=== PATIENT | male | born 1950 | race Caucasian/White ===

== ENCOUNTER 2021-06-02 14:45 | Inpatient (IN) | payer MEDICARE ==
[~2021-06-02] VITALS: Ht 185.4 cm; Wt 83.2 kg
[~2021-06-02 14:45] MED LIST: ACET325 PO; ALBU90OI6 INH; AMLO5 PO; ASPI81CH PO; DOCU100 PO; ELIQUIS2.5 MG PO; FOLI1 PO; METO50 PO; NICO21TP TOP; PRED5 PO; THIA100 PO
[2021-06-02 17:21] LABS: BASOPHILS ABSOLUTE AUTO 0.06 K/mm3 (0.00-0.23); BASOPHILS PERCENT AUTO 1 % (0-2); EOSINOPHILS ABSOLUTE AUTO 0.22 K/mm3 (0.00-0.68); EOSINOPHILS PERCENT AUTO 2 % (0-6); Hematocrit 47.1 % (37.0-53.0); IMMATURE GRAN ABSOLUTE AUTO 0.07 K/mm3 (0.00-0.10); IMMATURE GRAN PERCENT AUTO 1 % (0-1); LYMPHOCYTES ABSOLUTE AUTO 1.53 K/mm3 (0.84-5.20); LYMPHOCYTES PERCENT AUTO 14 % (21-46); MONOCYTES ABSOLUTE AUTO 1.01 K/mm3 (0.16-1.47); MONOCYTES PERCENT AUTO 9 % (4-13); Mean Corpuscular HGB 32.9 pg (26.0-34.0); Mean Corpuscular HGB Conc 36.1 g/dL (31.5-36.5); Mean Corpuscular Volume 91 fL (80-100); Mean Platelet Volume 10.6 fL (9.1-12.4); NEUTROPHILS ABSOLUTE AUTO 7.83 K/mm3 (1.96-9.15); NEUTROPHILS PERCENT AUTO 73 % (41-73); Platelet Count 337 K/mm3 (150-400); RDW Coefficient Variation 12.3 % (11.7-14.2); RDW Standard Deviation 41.3 fL (35.1-46.3); Red Blood Cell Count 5.17 M/mm3 (4.30-5.90); White Blood Cell Count 10.72 K/mm3 (4.00-11.30)
[2021-06-02 17:43] LABS: Magnesium, Blood 2.5 mg/dL (1.6-2.4); Troponin I <0.015 ng/mL (0.000-0.040)
[2021-06-02 17:46] LABS: Alanine Aminotransfer (ALT/SGP 29 U/L (12-78); Albumin, Blood 3.6 g/dL (3.4-5.0); Albumin/Globulin Ratio 0.9 (0.8-1.8); Alk Phos 78 U/L (50-136); Anion Gap 22 mmol/L (6-16); Aspartate Aminotrans (AST/SGOT 18 U/L (12-37); Bilirubin, Total 0.7 mg/dL (0.1-1.0); Blood Urea Nitrogen 139 mg/dL (8-24); Bun/Creatinine Ratio 9.2 (12.0-20.0); CO2, Blood 13 mmol/L (21-32); Calcium, Blood 8.9 mg/dL (8.5-10.1); Chloride, Blood 96 mmol/L (98-108); Globulin, Blood 4.1 g/dL (2.2-4.0); Glomerular Filtration Rate 3 (60-); Glucose, Blood 109 mg/dL (70-99); Potassium, Blood 4.6 mmol/L (3.5-5.5); Sodium, Blood 131 mmol/L (136-145); Total Protein, Blood 7.7 g/dL (6.4-8.2)
[2021-06-02 18:44] LABS: Salicylate 2.8 mg/dL (2.8-20.0)
[2021-06-02 18:45] LABS: Base Excess Venous -16.9 mmol/L; Bicarbonate Venous 12.5 mmol/L (24.0-30.0); PCO2 Venous 36.2 mmHg (38-42)
[2021-06-02 18:46] LABS: pH Blood Venous 7.14 (7.34-7.37)
[2021-06-02 18:50] LABS: Beta-hydroxybutyrate 2.8 mg/dL (0.2-2.8)
[2021-06-02 22:47] LABS: Source, Urine Clean Catch
[2021-06-02 23:15] LABS: Blood, Urine 4+ (Neg); Glucose Qualitative, Urine Neg (Neg); Ketones, Urine Neg (Neg); Leukocyte Esterase, Urine Neg (Neg); Nitrite, Urine Neg (Neg); Protein, Urine 2+ (Neg); Specific Gravity, Urine 1.025 (1.003-1.022); Urobilinogen, Urine NORM (Normal)
[2021-06-02 23:52] LABS: Appearance, Urine Hazy (Clear); Bilirubin, Urine 1+ (Neg); Color, Urine Yellow (P-Yellow)
[2021-06-02 23:55] LABS: Bacteria Mod /hpf; Squamous Epithelial Cells Few /hpf (Few)
--- NOTE | 2021-06-03 01:00 | NUR ---
UPDATE/PT TRANSFER PHYSICIAN NOTIFIED OF PT'S LOW BP AND MAP BELOW 65. ORDERS FOR 500 ML BOLUS. BOLUS GIVEN AND BICARB GTT STARTED. WINN ORDER AND INSERTED D/T PT'S INABILITY TO VOID W/URINE RETENTION. BLADDER SCAN OF OVER 350. ICU BOTTOM TURNER IN ROOM INSERTING POWER GLIDE. PT CONT TO HAVE LOW BP WITH MAP BELOW 65. PHYSICIAN NOTIFIED. ORDERS FOR LEVO AND ICU TX. PRIOR TO TRANSFER PT REPORTS TO HAVE HAD CP OVER THIS LAST WEEK WHEN EXERTING HIMSELF WHILE WALKING. PT SAID HE HAS NOT HAD ANY CP TODAY WHILE RESTING. ICU BOTTOM TURNER AND PRIMARY RN NOTIFIED. PT STATED HE DID "NOT WANT FAMILY NOTIFIED OF ICU TRANFER TONIGHT, WANTS FAMILY NOTIFIED TOMORROW WHEN AWAKE." PRIMARY RN INFORMED. PT TRANSFERRED TO ICU 12 BY THIS RN AND DYLAN ROUSE BY BED WITH BELONGINGS.
--- NOTE | 2021-06-03 01:39 | NUR ---
PATIENT TO ICU 12 FROM PCU 7 AT 0050. PATIENT IS ALERT AND ORIENTED X4, DOES ADMIT TO SOME CONFUSION AND FORGETFULLNESS ABOUT EVENTS EARLIER TODAY. COOPERATIVE WITH CARE AND FOLLOWING COMMANDS. 02 SATS 98% ON RA. LUNGS SOUNDS CLEAR TO COARSE, PATIENT HAS A DRY COUGH. HR A.FIB 70s-80s. BP HYPOTENSIVE ON ARRIVAL, LEVOPHED STARTED MAP NOW GREATER THAN 65. PULSES FAINT IN LOWER EXTREMETIES, CAP REFILL >3 SECONDS, SOME REDNESS IN BILATERAL FEET. WINN DRAINING YELLOW/SEDIMENT URINE TO GRAVITY. BOWEL TONES HYPERACTIVE, PT STATES DIARRHEA FOR PAST COUPLE WEEKS BUT NO BM FOR APPROX 3 DAYS NOW. ABLE TO MOVE SELF IN BED. CALL LIGHT IN REACH. SEE ASSESSMENT FOR MORE DETAIL.
[2021-06-03 03:51] LABS: BASOPHILS ABSOLUTE AUTO 0.06 K/mm3 (0.00-0.23); BASOPHILS PERCENT AUTO 1 % (0-2); EOSINOPHILS ABSOLUTE AUTO 0.32 K/mm3 (0.00-0.68); EOSINOPHILS PERCENT AUTO 3 % (0-6); Hematocrit 39.2 % (37.0-53.0); Hemoglobin 14.1 g/dL (13.5-17.5); IMMATURE GRAN ABSOLUTE AUTO 0.04 K/mm3 (0.00-0.10); IMMATURE GRAN PERCENT AUTO 0 % (0-1); LYMPHOCYTES ABSOLUTE AUTO 1.54 K/mm3 (0.84-5.20); LYMPHOCYTES PERCENT AUTO 16 % (21-46); MONOCYTES ABSOLUTE AUTO 0.96 K/mm3 (0.16-1.47); MONOCYTES PERCENT AUTO 10 % (4-13); Mean Corpuscular HGB 32.9 pg (26.0-34.0); Mean Corpuscular Volume 92 fL (80-100); Mean Platelet Volume 10.3 fL (9.1-12.4); NEUTROPHILS ABSOLUTE AUTO 6.66 K/mm3 (1.96-9.15); NEUTROPHILS PERCENT AUTO 70 % (41-73); Platelet Count 289 K/mm3 (150-400); RDW Coefficient Variation 12.4 % (11.7-14.2); RDW Standard Deviation 41.8 fL (35.1-46.3); Red Blood Cell Count 4.28 M/mm3 (4.30-5.90); White Blood Cell Count 9.58 K/mm3 (4.00-11.30)
[2021-06-03 05:08] LABS: Albumin, Blood 2.9 g/dL (3.4-5.0); Albumin/Globulin Ratio 0.9 (0.8-1.8); Bilirubin, Total 0.7 mg/dL (0.1-1.0); Bun/Creatinine Ratio 12.5 (12.0-20.0); Calcium, Blood 7.6 mg/dL (8.5-10.1); Creatinine, Blood 9.69 mg/dL (0.60-1.20); Globulin, Blood 3.3 g/dL (2.2-4.0); Potassium, Blood 3.6 mmol/L (3.5-5.5); Total Protein, Blood 6.2 g/dL (6.4-8.2)
--- NOTE | 2021-06-03 05:54 | NUR ---
SHIFT SUMMARY PATIENT REMAINS ALERT AND ORIENTED, COOPERATIVE WITH CARE. 02 SATS 100% ON RA. LUNGS CLEAR TO COARSE, COUGH IS NON PRODUCTIVE. HR A. FIB 80s. BP WITH MAP >65 ON LEVOPHED. WINN DRAINING TO GRAVITY, YELLOW WITH SEDIMENT. PATIENT ABLE TO REPOSITION SELF IN BED. NO BM SINCE ARRIVING TO ICU. CALL LIGHT IN REACH.
--- NOTE | 2021-06-03 08:48 | NUR ---
CARE OF PT ASSUMED AT 0700. PT AWAKE IN BED. RENAL ULTRASOUND COMPLETE. DR BLUE IN TO SEE PT, UPDATE GIVEN. BICARB GTT AT 100CC/HR. LEVOPHED AT 7MCG TO KEEP MAP >65. PT AFEBRILE, SATS 99% ON RA, PT DENIES SOB. LUNGS CLEAR, DIMINISHED T/O. PT IS A CURRENT EVERYDAY SMOKER. PT DENIES C/O PAIN AND STATES HE FEELS MUCH BETTER TODAY. LEVOPHED IS INFUSING THROUGH POWERGLIDE. PICC TO BE PLACED.
--- NOTE | 2021-06-03 18:42 | NUR ---
LEVOPHED INCREASED TO 10MCG AT 1030 THIS AM AND HAS REMAINED THERE ENTIRE SHIFT. MAPS >65. BICARB GTT COMPLETE, CHANGED TO LR AT 125CC/HR. BMP SENT. PT HAS DENIED COMPLAINTS THIS SHIFT, RESTED IN BED WATCHING TV. SATS 99-100% ON RA.
[2021-06-03 18:44] LABS: Bun/Creatinine Ratio 24.7 (12.0-20.0); Calcium, Blood 7.6 mg/dL (8.5-10.1); Creatinine, Blood 3.81 mg/dL (0.60-1.20); Potassium, Blood 3.4 mmol/L (3.5-5.5)
--- NOTE | 2021-06-03 20:28 | NUR ---
ASSUMED CARE AT 1900 PATIENT IS ALERT AND ORIENTED, COOPERATIVE WITH CARE. 02 SATS 99% ON RA WITH A DRY COUGH. LUNGS SOUND CLEAR TO DIMINISHED IN THE BASES. HR A.FIB @80s, LEVOPHED INF 7 MCG/MIN TO KEEP MAP >65, WILL TITRATE NEEDED. WINN DRAINING TO GRAVITY, CLEAR YELLOW. CALLED HOSPITALIST FOR POTASSIUM REPLACEMENT, AND SLIDING SCALE FOR HIGH BLOOD GLUCOSE, SEE EMAR. PATIENT ABLE TO REPOSITION SELF IN BED. CALL LIGHT IN REACH.
[2021-06-04 03:51] LABS: BASOPHILS ABSOLUTE AUTO 0.01 K/mm3 (0.00-0.23); BASOPHILS PERCENT AUTO 0 % (0-2); EOSINOPHILS PERCENT AUTO 0 % (0-6); Hematocrit 34.7 % (37.0-53.0); Hemoglobin 12.8 g/dL (13.5-17.5); IMMATURE GRAN ABSOLUTE AUTO 0.04 K/mm3 (0.00-0.10); IMMATURE GRAN PERCENT AUTO 1 % (0-1); LYMPHOCYTES PERCENT AUTO 8 % (21-46); MONOCYTES ABSOLUTE AUTO 0.65 K/mm3 (0.16-1.47); MONOCYTES PERCENT AUTO 8 % (4-13); Mean Corpuscular HGB 33.2 pg (26.0-34.0); Mean Corpuscular HGB Conc 36.9 g/dL (31.5-36.5); Mean Corpuscular Volume 90 fL (80-100); Mean Platelet Volume 10.3 fL (9.1-12.4); NEUTROPHILS PERCENT AUTO 84 % (41-73); Platelet Count 237 K/mm3 (150-400); RDW Coefficient Variation 12.2 % (11.7-14.2); RDW Standard Deviation 39.7 fL (35.1-46.3); Red Blood Cell Count 3.85 M/mm3 (4.30-5.90)
[2021-06-04 04:12] LABS: Albumin, Blood 2.6 g/dL (3.4-5.0); Anion Gap 8 mmol/L (6-16); Blood Urea Nitrogen 76 mg/dL (8-24); Bun/Creatinine Ratio 35.8 (12.0-20.0); CO2, Blood 20 mmol/L (21-32); Calcium, Blood 7.8 mg/dL (8.5-10.1); Chloride, Blood 112 mmol/L (98-108); Creatinine, Blood 2.12 mg/dL (0.60-1.20); Glomerular Filtration Rate 31 (60-); Glucose, Blood 121 mg/dL (70-99); Magnesium, Blood 1.8 mg/dL (1.6-2.4); Phosphorus, Blood 2.5 mg/dL (2.5-4.9); Potassium, Blood 3.6 mmol/L (3.5-5.5); Sodium, Blood 140 mmol/L (136-145)
--- NOTE | 2021-06-04 05:15 | NUR ---
SHIFT SUMMARY PATIENT REMAINS ALERT AND ORIENTED. 02 SATS 98% ON RA. PATIENT STATES HIS COUGH IS PRODUCTIVE, SCANT AMOUNT OF THIN SPUTUM. HR A.FIB @70s-80s. LEVOPHED TITRATED OFF AT APPROX 0100, MAP MAINTAINED >65. WINN DRAINING CLEAR YELLOW URINE. PATIENT REPOSITIONS HIMSELF IN BED. CALL LIGHT IN REACH.
--- NOTE | 2021-06-04 09:52 | NUR ---
CARE OF PT ASSUMED AT 0700. PT AWAKE AND ALERT, DENIES ALL COMPLAINTS BUT STATES HE DID NOT SLEEP WELL LAST NIGHT. LEVOPHED HAS BEEN OFF SINCE LAST NIGHT, MAPS >65. DR BLUE IN TO SEE PT THIS AM, UPDATE GIVEN. PT NOW MED FLOOR W/O TELE.
--- NOTE | 2021-06-04 18:02 | NUR ---
PT AWAKE AND RESTED IN BED FOR ENTIRE SHIFT. PT DECLINED CHAIR. VSS T/O SHIFT. PT W/O COMPLAINTS FOR ENTIRE SHIFT. GOOD APPETITE/PO INTAKE. NO BM SINCE ADMIT; CDIFF CX'D. PT TO BE POSSIBLY DC'D HOME IN AM PER DR BLUE.
--- NOTE | 2021-06-04 19:41 | NUR ---
ASSUMED CARE @1850 PATIENT ALERT AND ORIENTED X4. 02 SATS 98% ON RA. LUNGS SOUND CLEAR TO DIMINISHED, COUGH WITH SCANT AMOUNT OF THIN SPUTUM AT TIMES. HR IN THE 80s. BP STABLE. PATIENT DENIES CP/PRESSURE/SOB. WINN DRAINING CLEAR YELLOW URINE. PATIENT REPOSITIONS SELF IN BED. CALL LIGHT IN REACH. SEE SHIFT ASSESSMENT FOR MORE DETAIL.
[2021-06-05 05:02] LABS: Anion Gap 6 mmol/L (6-16); Blood Urea Nitrogen 51 mg/dL (8-24); CO2, Blood 23 mmol/L (21-32); Calcium, Blood 8.2 mg/dL (8.5-10.1); Chloride, Blood 114 mmol/L (98-108); Creatinine, Blood 1.16 mg/dL (0.60-1.20); Glomerular Filtration Rate >60 (60-); Glucose, Blood 115 mg/dL (70-99); Potassium, Blood 4.2 mmol/L (3.5-5.5); Sodium, Blood 143 mmol/L (136-145)
--- NOTE | 2021-06-05 05:19 | NUR ---
SHIFT SUMMARY PATIENT IS ALERT AND ORIENTED. 02 SATS >93% ON RA. LUNGS CLEAR TO DIMINISHED. HR 80s-90s. BP STABLE. REMOVED WINN CATHETER AND PATIENT ABLE TO VOID IN URINAL. NO BM THIS SHIFT. PATIENT IS INDEPENDENT WITH REPOSITIONING. CALL LIGHT IN REACH.
== END 2021-06-05 12:50 | disposition home or self-care (01) | DRG 177 ==
LOC: ER 14:45 → PCU 19:51 → ER 21:18 → PCU 21:50 → ICUW 06-03 00:52
PROVIDERS: Family Medicine; Internal Medicine; Physician Assistant; Student in an Organized Health Care Education/Training Program; ADMIT Internal Medicine
PROC: 8E0ZXY6 Isolation (ICD-10-PCS; principal; 2021-06-02)
PROC: 3E043XZ Introduction of Vasopressor into Central Vein, Percutaneous Approach (ICD-10-PCS; 2021-06-03)
PROC: 3E0333Z Introduction of Anti-inflammatory into Peripheral Vein, Percutaneous Approach (ICD-10-PCS; 2021-06-03)
PROC: 02HV33Z Insertion of Infusion Device into Superior Vena Cava, Percutaneous Approach (ICD-10-PCS; 2021-06-03)
DX: U07.1 COVID-19 (principal); R57.1 Hypovolemic shock; J96.01 Acute respiratory failure with hypoxia; N17.9 Acute kidney failure, unspecified; E87.2 Acidosis; E87.1 Hypo-osmolality and hyponatremia; A08.39 Other viral enteritis; I10 Essential (primary) hypertension; I48.91 Unspecified atrial fibrillation; J44.9 Chronic obstructive pulmonary disease, unspecified; F17.210 Nicotine dependence, cigarettes, uncomplicated; F10.20 Alcohol dependence, uncomplicated; Z87.01 Personal history of pneumonia (recurrent); Z86.711 Personal history of pulmonary embolism; Z86.718 Personal history of other venous thrombosis and embolism; Z86.73 Personal history of transient ischemic attack (TIA), and cerebral infarction without residual deficits; Z79.52 Long term (current) use of systemic steroids; Z79.82 Long term (current) use of aspirin; Z79.899 Other long term (current) drug therapy
CPT/HCPCS: 36415; 36569; 51798; 71045; 76770; 80048; 80053; 80069; 81001; 82010; 82803; 82947; 83605; 83735; 83880; 84484; 85025; 86850; 86900; 86901; 87040; 87086; 93005; 93010; 94760; 96365; 99285-25; A9270; C1751; G0480; J0696; J1100; J2543; J7030; J7040; J7050; J7060; J7120

== ENCOUNTER 2022-11-21 20:16 | Observation (INO) | payer MEDICARE ==
[~2022-11-21] VITALS: Ht 182.9 cm; Wt 83.4 kg
[2022-11-21 21:47] LABS: BASOPHILS ABSOLUTE AUTO 0.07 K/mm3 (0.00-0.23); BASOPHILS PERCENT AUTO 1 % (0-2); EOSINOPHILS ABSOLUTE AUTO 0.26 K/mm3 (0.00-0.68); EOSINOPHILS PERCENT AUTO 3 % (0-6); Hematocrit 47.8 % (37.0-53.0); Hemoglobin 17.1 g/dL (13.5-17.5); IMMATURE GRAN ABSOLUTE AUTO 0.03 K/mm3 (0.00-0.10); IMMATURE GRAN PERCENT AUTO 0 % (0-1); LYMPHOCYTES PERCENT AUTO 32 % (21-46); MONOCYTES ABSOLUTE AUTO 0.98 K/mm3 (0.16-1.47); MONOCYTES PERCENT AUTO 10 % (4-13); Mean Corpuscular HGB 33.5 pg (26.0-34.0); Mean Corpuscular HGB Conc 35.8 g/dL (31.5-36.5); Mean Corpuscular Volume 94 fL (80-100); Mean Platelet Volume 9.8 fL (9.1-12.4); NEUTROPHILS ABSOLUTE AUTO 5.56 K/mm3 (1.96-9.15); NEUTROPHILS PERCENT AUTO 55 % (41-73); Platelet Count 399 K/mm3 (150-400); RDW Coefficient Variation 13.1 % (11.7-14.2); RDW Standard Deviation 44.6 fL (35.1-46.3)
[2022-11-21 22:21] LABS: Albumin, Blood 3.6 g/dL (3.4-5.0); Albumin/Globulin Ratio 0.9 (0.8-1.8); Bilirubin, Total 0.3 mg/dL (0.1-1.0); Bun/Creatinine Ratio 18.7 (12.0-20.0); Calcium, Blood 9.8 mg/dL (8.5-10.1); Creatinine, Blood 2.46 mg/dL (0.60-1.20); Globulin, Blood 3.9 g/dL (2.2-4.0); Potassium, Blood 4.1 mmol/L (3.5-5.5); Total Protein, Blood 7.5 g/dL (6.4-8.2)
[2022-11-22] VITALS (11 sets, daily range): BP systolic 92–127; BP diastolic 65–98
[2022-11-22 05:13] LABS: Source, Urine Clean Catch
[2022-11-22 05:21] LABS: Appearance, Urine Clear (Clear); Bilirubin, Urine Neg (Neg); Blood, Urine Neg (Neg); Color, Urine Yellow (P-Yellow); Glucose Qualitative, Urine Neg (Neg); Ketones, Urine Neg (Neg); Leukocyte Esterase, Urine Neg (Neg); Nitrite, Urine Neg (Neg); Protein, Urine Neg (Neg); Specific Gravity, Urine 1.015 (1.003-1.022); Urobilinogen, Urine NORM (Normal)
--- NOTE | 2022-11-22 05:52 | NUR ---
ARRIVAL TO ICU6 PT ARRIVED TO ICU VIA ED GURNEY. PT A/O X 4 AND ABLE TO WALK FROM ED GURNEY TO ICU BED. PT C/O DIZZINESS AT TIMES WHEN GETTING UP/DOWN. ABLE TO AMBULATE TO BR WITH ONE ASSIST. ON RA. AFIB RATE 60-70'S. SBP 90-100'S. MAP GREATER THAN 65. NS AT 150ML/HR. PT EDUCATED ON IGNITION RISK AND VERBALIZED UNDERSTANDING. CALL LIGHT IN REACH.
--- NOTE | 2022-11-22 08:44 | NUR ---
ASSUMED CARE REPORT FROM MARIBELL RICHARDSON AT 0700. PT RESTING IN BED. A&OX 4. FOLLOWS COMMANDS. ANSWERS QUESTIONS APPROPRIATELY. DENIES DIZZINESS, LIGHTHEADNESS OR OTHER SYMPTOMS. STATES THESE ONLY OCCUR WHEN STANDING. LUNGS DIM IN BASES. NON PRODUCTIVE COUGH. VSS, AFIB, RATE 70'S. BP STABLE. TOLERATED BREAKFAST WELL. EDUCATED PT ON IGNITION RISK AND NOT SMOKING WHEN IN FACILTY. WILL CONTINUE TO MONITOR.
[2022-11-22 10:57] LABS: Albumin, Blood 2.7 g/dL (3.4-5.0); Albumin/Globulin Ratio 0.9 (0.8-1.8); Bilirubin, Total 0.2 mg/dL (0.1-1.0); Bun/Creatinine Ratio 20.4 (12.0-20.0); Calcium, Blood 8.3 mg/dL (8.5-10.1); Creatinine, Blood 1.86 mg/dL (0.60-1.20); Globulin, Blood 3.1 g/dL (2.2-4.0); Potassium, Blood 3.4 mmol/L (3.5-5.5); Total Protein, Blood 5.8 g/dL (6.4-8.2)
--- NOTE | 2022-11-22 17:46 | NUR ---
SHIFT SUMMARY NO ACUTE CHANGES THIS SHIFT. PT STATUS CHANGED TO MED s TELE. A&O X 4. ANSWERS QUESTIONS APPROPRIATELY. FOLLOWS COMMANDS. LUNGS CLEAR. AFIB. BP STABLE. ADEQUATE PO INTAKE, IVF D/C'D. PT WORKED c PHYSICAL THERAPY, AMB UNASSISTED. DENIES SYMPTOMS c AMBULATION. WILL CONTINUE TO MONITOR UNTIL REPORT TO ONCOMING NURSE.
--- NOTE | 2022-11-23 05:46 | NUR ---
END OF SHIFT SUMMARY PT RESTED THIS SHIFT WITH MINIMAL INTERUPTIONS. A/O X4. ANXIOUS TO GO HOME. NO ACUTE CHANGES THIS SHIFT. VITALS WNL, WILL CONTINUE TO MONITOR UNTIL REPORT GIVEN TO AM RN.
--- NOTE | 2022-11-23 06:15 | NUR ---
PT EDUCATED ON POLICY FOR SMOKING AND FLAMES IN HOSPITAL. PT STATED UNDERSTANDING.
[2022-11-23 07:50] VITALS: BP 126/82
--- NOTE | 2022-11-23 08:10 | NUR ---
AM NOTE... ASSUMED CARE OF PT AT 0700. PT IS A&OX4. PT'S VS STABLE. HE DENIES PAIN. PT IS ANXIOUS TO D/C HOME TODAY. L/S CLEAR T/O DIM IN THE BASES. O2 SATS >95% ON RA. WILL CONTINUE TO MONITOR.
--- NOTE | 2022-11-23 10:31 | NUR ---
PT D/C... PT D/C HOME AT 1030. MEDS FAXED TO PT'S PHARMACY OF CHOICE, NEW PCP APPOINTMENT WAS MADE PER THE PT'S REQUEST. ALL OF PT'S BELONGINGS WERE PACKED AND SENT WITH THE PT. BOTH IVs REMOVED WNL. PT REFUSED W/C ESCORT OUT OF THE [place].
== END 2022-11-23 10:58 | disposition home or self-care (01) ==
LOC: ER 20:16 → ICUE 20:18 → ER 11-22 02:46 → ICUE 11-22 02:46
PROVIDERS: Internal Medicine; Student in an Organized Health Care Education/Training Program; ADMIT Internal Medicine
DX: E86.0 Dehydration (principal); N17.9 Acute kidney failure, unspecified; I73.9 Peripheral vascular disease, unspecified; J44.9 Chronic obstructive pulmonary disease, unspecified; F10.20 Alcohol dependence, uncomplicated; I48.20 Chronic atrial fibrillation, unspecified; E87.1 Hypo-osmolality and hyponatremia; Z86.16 Personal history of COVID-19; Z72.0 Tobacco use
CPT/HCPCS: 36415; 71046; 80053; 81003; 84484; 85025; 93005; 93010; 96360; 96361; 97161; 99285-25; A9270; G0378; G0480; J7030